=== PATIENT | male | born 1955 | race Asian ===

== ENCOUNTER 2018-03-30 12:17 | Emergency (ER) | payer OTHER ==
[~2018-03-30] VITALS: Ht 175.3 cm; Wt 111.8 kg
[2018-03-30 12:21] VITALS: BP 146/86
[2018-03-30] MEDS ORDERED: LOSA25TA21 PO (12:22)
[2018-03-30] MEDS ORDERED: METF500T6 PO (12:22)
[2018-03-30] MEDS ORDERED: ATOR40TA28 PO (12:22)
[2018-03-30 12:34] LABS: GLUCOSE,POINT OF CARE 102 MG/DL (70-110)
== END 2018-03-30 14:24 | disposition home or self-care (01) ==
LOC: EMS 12:18
DX: K04.7 Periapical abscess without sinus (principal); E11.9 Type 2 diabetes mellitus without complications; I10 Essential (primary) hypertension; E78.00 Pure hypercholesterolemia, unspecified; Z79.899 Other long term (current) drug therapy
CPT/HCPCS: 99282; 99283